=== PATIENT | female | born 1990 | race Caucasian/White ===

== ENCOUNTER 2024-03-14 19:23 | Emergency (ER) | payer MEDICARE, SELFPAY ==
[2024-03-14 19:25] VITALS: BP 91/64
--- NOTE | 2024-03-14 20:22 | ED.SKININJ ---
HPI-Injury
General
Chief Complaint: Bite
Time Seen by Provider: 03/14/24 19:52
History of Present Illness-Injury
Initial Injury comments:
Patient is a 33-year-old woman is otherwise healthy presenting to the emergency department after her 8-week-old puppy bit her. Patient states that she was playing when he bit her right forearm and right wrist. She did have bleeding at the forearm
site that did stop prior to evaluation. She did notice some swelling around it. She came in here for further evaluation. Dog is up-to-date on his immunizations. No numbness tingling. No weakness. She did washout the puncture wound extensively
prior to arrival.
Past History
Past History
ED Past Medical History: None
ED Past Surgical History:
Social History
Personal: Single
Living: with family
Employment: Employed
Phy Exam
Physical Exam
Physical Exam:
GENERAL: in no acute distress
HEENT: normocephalic, extraocular movements intact, moist oral mucosa
NECK: normal inspection
RESPIRATORY: no respiratory distress
CARDIOVASCULAR: regular rate and rhythm
EXTREMITIES: Right upper extremity with puncture wound to the right forearm in the right hand proximal to the thumb. Bleeding is controlled. Distal pulses intact. Neurovascularly intact
NEUROLOGIC: awake and alert, moves all extremities
SKIN: warm
Course
Orders/Labs/Results
Orders:
Orders
03/14/24 20:20
Amoxicillin 875 mg/Clav 125 mg [Augmentin 875 mg/125 mg] 1 tablet PO NOW STA
Tetanus/Diphth/Acelpertussis [Adacel] 0.5 ml IM .ONCE ONE
Vital Signs
Initial and Last Documented VS:
Initial Vital Signs
Temp Pulse Resp BP Pulse Ox
98.2 F 60 18 91/64 98
03/14/24 19:25 03/14/24 19:25 03/14/24 19:25 03/14/24 19:25 03/14/24 19:25
Last Documented Vital Signs
Temp Pulse Resp BP Pulse Ox
98.2 F 60 18 91/64 98
03/14/24 19:25 03/14/24 19:25 03/14/24 19:25 03/14/24 19:25 03/14/24 19:25
MDM/Problems Addressed
Differential Diagnosis Includes:
Patient is a 33-year-old woman present to the emergency department after her dog bit her twice on the right upper extremity. Vitals are notable for initial recorded blood pressure 91/64 however during my encounter patient's blood pressure was in
the 100. Patient is asymptomatic at this time from that. Exam does show 2 puncture wounds. We did irrigate the puncture wounds. I did update patient's tetanus and started her on Augmentin. First dose given here. Consider obtaining x-ray to
make sure there was not any teeth or debris in the arms however patient declined at this time. Strict return precautions given. Will discharge at this time.
*Critical Care Note
Total Time (30-74mins, 75-104mins- exclusive of procedures): Not Applicable
ED Attending Note
-
Portions of this chart may have been created with voice recognition software.� Occasional wrong word or��sound alike� substitutions may have occurred due to the inherent limitations of voice recognition software.
Discharge Plan
Departure
Patient Disposition: Home (Routine Discharge)
Date of Disposition: 03/14/24
Time of Disposition: 20:21
Patient with high blood pressure during this ER visit?: No
Discharge Problem:
Dog bite
Instructions: Animal Bites (DC)
Prescriptions:
New
amoxicillin-pot clavulanate 875-125 mg tablet
1 tab PO BID 5 Days Qty: 10 0RF
No Action
prenat.vits,mariia,qbi-socp-ulmyz [ Vitamin] 1 EACH tablet
1 tab PO DAILY
ferrous sulfate [iron] 325 MG tablet
325 mg PO WEEKLY
oxycodone-acetaminophen 5 MG/325 MG tablet
1 - 2 tab PO Q3HPRN PRN (Reason: severe pain) Qty: 30 0RF
ibuprofen 600 MG tablet
600 mg PO Q4HPRN PRN (Reason: moderate pain/cramps) Qty: 0 0RF
cephalexin 500 MG capsule
500 mg PO BID Qty: 9 0RF
Referrals:
CHELO Burns [Other]
Activity Restrictions/Additional Instructions:
You were seen in the Emergency Department today for a dog bite. We did start you on antibiotics. Please take it as prescribed
We would like for you to follow up with your primary care physician for further evaluation. If you experience fever, worsening of your symptoms, or develop any other new or concerning symptoms, please return to the Emergency Department immediately.
Please see the attached sheet for additional information.
Discharge Date and Time
Print Language: SPANISH
[2024-03-14] MEDS: AUGMENTIN 875 MG/125 MG 1 TABLET PO (20:29)
[2024-03-14] MEDS: ADACEL 0.5 ML IM (20:30)
== END 2024-03-14 21:16 | disposition home or self-care (01) ==
LOC: EMR 19:23
PROVIDERS: EMERGENCY PHYSICIAN Student in an Organized Health Care Education/Training Program
DX: S41.131A Puncture wound without foreign body of right upper arm, initial encounter (principal); S61.531A Puncture wound without foreign body of right wrist, initial encounter; W54.0XXA Bitten by dog, initial encounter; Z23 Encounter for immunization
CPT/HCPCS: 99283; 90471; 90715